=== PATIENT | male | born 1985 | race African-American/Black ===

== ENCOUNTER 2023-12-08 09:22 | Emergency (ER) | payer OTHER ==
[2023-12-08] MEDS ORDERED: Acetaminophen 500 MG TAB ONE (10:09)
== END 2023-12-08 10:53 | disposition home or self-care (01) ==
LOC: NAV ERS 09:22
DX: S39.012A Strain of muscle, fascia and tendon of lower back, initial encounter (principal); S16.1XXA Strain of muscle, fascia and tendon at neck level, initial encounter; R03.0 Elevated blood-pressure reading, without diagnosis of hypertension; F17.290 Nicotine dependence, other tobacco product, uncomplicated; V59.09XA Driver of pick-up truck or van injured in collision with other motor vehicles in nontraffic accident, initial encounter; Y93.89 Activity, other specified; Y92.481 Parking lot as the place of occurrence of the external cause
CPT/HCPCS: 72125; 72128; 72131